=== PATIENT | female | born 1955 | race Caucasian/White ===

== ENCOUNTER 2016-11-06 05:50 | Day surgery (SDC) | payer BC ==
[~2016-11-06] VITALS: Ht 157.5 cm; Wt 74.4 kg
[2016-11-06] MEDS ORDERED: LevALBUTEROL HCL 1.25 MG/0.5 ML *CONC.* VIAL.NEB (XOPENEX CONC.) INH ONE ×2 (06:15→06:33)
[2016-11-06 06:19] VITALS: O2SAT 95
[2016-11-06] MEDS ORDERED: LR 1,000 ML IV SCH (08:24)
[2016-11-06] MEDS ORDERED: MEPERIDINE HCL/PF 25 MG/ML DISP.SYRIN IVP PRN (08:30)
[2016-11-06] MEDS ORDERED: HYDROmorphone 2 MG/ML VIAL IVP PRN ×2 (08:30)
[2016-11-06] MEDS ORDERED: HYDROmorphone 1 MG INJ. 1 MG/ML AMPUL IVP PRN (08:30)
[2016-11-06] MEDS: HYDROmorphone 1 MG INJ. 1 MG/ML AMPUL ONE ×2 (10:16→10:32)
[2016-11-06] MEDS ORDERED: FAMOTIDINE PF 20 MG/2 ML VIAL IVP ONE (10:45)
[2016-11-06] MEDS ORDERED: METOCLOPRAMIDE HCL 10 MG/2 ML VIAL IVP ONE (10:45)
[2016-11-06] MEDS ORDERED: METOCLOPRAMIDE HCL 10 MG/2 ML VIAL ONE (10:46)
[2016-11-06] MEDS ORDERED: FAMOTIDINE PF 20 MG/2 ML VIAL ONE (10:54)
[2016-11-06 11:00] VITALS: BP 109/61; PULSE 76; RESP 16
[2016-11-06] MEDS ORDERED: HYDROcodone/ACETAMIN 5-325 MG TAB (NORCO/ VICODIN) ONE (13:10)
[2016-11-06] MEDS ORDERED: MIDAZOLAM HCL 5 MG/5 ML VIAL ONE (14:00)
[2016-11-06] MEDS ORDERED: NS IRRIG SOLN 1000 ML IR ONE (14:00)
[2016-11-06] MEDS ORDERED: DEXAMETHASONE SOD PHOSPHATE 4 MG/ML VIAL ONE (14:00)
[2016-11-06] MEDS ORDERED: LIDOCAINE/EPI 1% 1:100000 20 ML VIAL INJ ONE (14:00)
[2016-11-06] MEDS ORDERED: SEVOFLURANE 15 MIN GAS INH ONE (14:00)
[2016-11-06] MEDS ORDERED: PROPOFOL 200MG/ 20ML VIAL (DIPRIVAN) IV ONE (14:00)
[2016-11-06] MEDS ORDERED: ONDANSETRON HCL 4 MG/2 ML VIAL ONE (14:00)
[2016-11-06] MEDS ORDERED: NS 250 ML BAG IV ONE (14:00)
[2016-11-06] MEDS ORDERED: BACITRACIN ZINC 15 GM TOPICAL OINTMENT TP ONE (14:00)
[2016-11-06] MEDS ORDERED: OXYMETAZOLINE HCL 0.05% NASAL SPRAY NS ONE (14:00)
[2016-11-06] MEDS ORDERED: fentaNYL CITRATE/PF 100 MCG/2 ML AMP ONE (14:00)
[2016-11-06] MEDS ORDERED: KETOROLAC TROMETHAMINE 30 MG VIAL ONE (14:00)
[2016-11-06] MEDS ORDERED: ROCURONIUM BROMIDE 10 MG/ML (ZEMURON) ONE (14:00)
[2016-11-06] MEDS ORDERED: EPINEPHrine 1 MG/ML AMP ONE (14:00)
[2016-11-06] MEDS ORDERED: LR 1,000 ML IV.SOLN IV ONE (14:00)
== END 2016-11-06 14:05 | disposition home or self-care (01) ==
LOC: SOR 05:50 → SMU 05:50 → SOR 14:05
PROVIDERS: ATTEND Otolaryngology
DX: J32.8 Other chronic sinusitis (principal); J34.2 Deviated nasal septum; J34.89 Other specified disorders of nose and nasal sinuses; Z90.49 Acquired absence of other specified parts of digestive tract; J45.909 Unspecified asthma, uncomplicated; I48.91 Unspecified atrial fibrillation; E04.9 Nontoxic goiter, unspecified; E66.9 Obesity, unspecified; I10 Essential (primary) hypertension; E11.9 Type 2 diabetes mellitus without complications; E78.5 Hyperlipidemia, unspecified
CPT/HCPCS: 30140; 30520; 30999; 31235; 31255; 31256; 31296; 88305; 88311; 93005; 94640; C1726; J0171; J1100; J1170; J1885; J2250; J2405; J2704; J2765; J3010; J3490; J7050; J7120